=== PATIENT | female | born 1995 | race Caucasian/White ===

== ENCOUNTER 2016-08-09 21:06 | Emergency (ER) | payer MEDICAID ==
[2016-08-09 22:29] LABS: BASOPHIL % 0.3 % (0-2)
[2016-08-09 22:49] LABS: PLATELET COUNT 224 x10^3mcL (130-400)
[2016-08-09 23:09] LABS: RED CELL DISTRIBUTION WIDTH 23.5 % (11.5-14.5)
[2016-08-09 23:16] LABS: rbc morphology (normal/abnorm) ABNORMAL (NORMAL)
[2016-08-09 23:50] VITALS: BP 115/68
== END 2016-08-09 23:50 | disposition home or self-care (01) ==
LOC: ED 21:06
PROVIDERS: Emergency Medicine
DX: O20.0 Threatened abortion (principal); Z3A.01 Less than 8 weeks gestation of pregnancy

== ENCOUNTER 2017-02-12 21:59 | Emergency (ER) | payer MEDICAID ==
[2017-02-13 00:15] LABS: BASOPHIL % 0.1 % (0-2); PLATELET COUNT 246 x10^3mcL (130-400)
[2017-02-13 00:18] LABS: RED CELL DISTRIBUTION WIDTH 21.4 % (11.5-14.5)
[2017-02-13 00:37] LABS: CALCIUM 9.5 mg/dL (8.5-10.1); CARBON DIOXIDE 25.6 mmol/L (21-32); CHLORIDE SERUM 102 mmol/L (98-107); CREATININE SERUM 0.6 mg/dL (0.6-1.0); GFR1 > 60 mL/min; GLUCOSE SERUM 106 mg/dL (74-106); POTASSIUM SERUM 3.7 mmol/L (3.5-5.1); SODIUM SERUM 138 mmol/L (136-145)
[2017-02-13 00:41] LABS: ALBUMIN 4.3 g/dL (3.4-5.0); ALKALINE PHOSPHATASE 68 U/L (46-116); ALT/SGPT 24 U/L (14-59); AMYLASE 60 U/L (25-115); AST/SGOT 29 U/L (15-37); BILIRUBIN TOTAL 0.4 mg/dL (0.20-1.00); LIPASE 134 IU/L (73-393)
[2017-02-13 00:42] LABS: TOTAL PROTEIN, SERUM 8.4 g/dL (6.4-8.2)
[2017-02-13 00:56] LABS: ovalocyte/elliptocyte 1+; rbc morphology (normal/abnorm) ABNORMAL (NORMAL)
[2017-02-13 03:00] VITALS: BP 115/75
== END 2017-02-13 03:00 | disposition home or self-care (01) ==
LOC: ED 21:59
PROVIDERS: Emergency Medicine
DX: S22.080A Wedge compression fracture of T11-T12 vertebra, initial encounter for closed fracture (principal); Z86.2 Personal history of diseases of the blood and blood-forming organs and certain disorders involving the immune mechanism; V49.9XXA Car occupant (driver) (passenger) injured in unspecified traffic accident, initial encounter; Y93.19 Activity, other involving water and watercraft; Y92.488 Other paved roadways as the place of occurrence of the external cause; Y99.8 Other external cause status
CPT/HCPCS: J1170; J2405; J7030; Q0092; Q9967

== ENCOUNTER 2018-01-12 02:41 | Emergency (ER) | payer MEDICAID ==
[~2018-01-12] VITALS: Ht 157.5 cm; Wt 63.5 kg
[2018-01-12 02:46] VITALS: Ht 157.5 cm; Wt 63.5 kg
[2018-01-12 04:02] VITALS: BP 103/66
== END 2018-01-12 04:02 | disposition home or self-care (01) ==
LOC: ED 02:41
DX: F41.0 Panic disorder [episodic paroxysmal anxiety] (principal); J45.909 Unspecified asthma, uncomplicated

== ENCOUNTER 2018-10-16 11:10 | Emergency (ER) | payer SELFPAY ==
[~2018-10-16] VITALS: Ht 157.5 cm; Wt 64.0 kg
[2018-10-16 11:25] VITALS: Ht 157.5 cm; Wt 64.0 kg
[2018-10-16 12:19] VITALS: BP 110/50
== END 2018-10-16 12:19 | disposition home or self-care (01) ==
LOC: ED 11:10
DX: N39.0 Urinary tract infection, site not specified (principal); J45.909 Unspecified asthma, uncomplicated; Z86.2 Personal history of diseases of the blood and blood-forming organs and certain disorders involving the immune mechanism

== ENCOUNTER 2019-04-02 18:51 | Emergency (ER) | payer MEDICAID ==
[~2019-04-02] VITALS: Ht 162.6 cm; Wt 66.7 kg
[2019-04-02 19:26] VITALS: Ht 162.6 cm; Wt 66.7 kg
[2019-04-02 20:49] LABS: BASOPHIL % 0.4 % (0-2); PLATELET COUNT 235 x10^3mcL (130-400)
[2019-04-02 20:50] LABS: CALCIUM 8.6 mg/dL (8.5-10.1); CARBON DIOXIDE 29.7 mmol/L (21-32); CHLORIDE SERUM 103 mmol/L (98-107); CREATININE SERUM 0.6 mg/dL (0.6-1.0); GFR1 > 60 mL/min; GLUCOSE SERUM 93 mg/dL (74-106); POTASSIUM SERUM 3.6 mmol/L (3.5-5.1); SODIUM SERUM 141 mmol/L (136-145)
[2019-04-02 20:55] LABS: ALBUMIN 3.7 g/dL (3.4-5.0); ALKALINE PHOSPHATASE 61 U/L (46-116); ALT/SGPT 20 U/L (14-59); AST/SGOT 16 U/L (15-37); BILIRUBIN TOTAL 0.2 mg/dL (0.20-1.00); TOTAL PROTEIN, SERUM 7.3 g/dL (6.4-8.2)
[2019-04-02 21:05] LABS: RED CELL DISTRIBUTION WIDTH 14.8 % (11.5-14.5)
[2019-04-02 21:48] VITALS: BP 104/56
== END 2019-04-02 22:15 | disposition home or self-care (01) ==
LOC: ED 18:51
PROVIDERS: Emergency Medicine
DX: R42 Dizziness and giddiness (principal); R51 Headache; R11.2 Nausea with vomiting, unspecified; J45.909 Unspecified asthma, uncomplicated
CPT/HCPCS: 36415; J8597; Q0162

== ENCOUNTER 2019-04-21 15:35 | Emergency (ER) | payer MEDICAID ==
[~2019-04-21] VITALS: Ht 157.5 cm; Wt 65.3 kg
[2019-04-21 15:42] VITALS: BP 125/82; Ht 157.5 cm; Wt 65.3 kg
== END 2019-04-21 17:14 | disposition home or self-care (01) ==
LOC: ED 15:35
DX: L03.211 Cellulitis of face (principal); J45.909 Unspecified asthma, uncomplicated; Z98.890 Other specified postprocedural states; Z86.2 Personal history of diseases of the blood and blood-forming organs and certain disorders involving the immune mechanism
CPT/HCPCS: J2270; Q0162

== ENCOUNTER 2019-04-26 16:48 | Emergency (ER) | payer MEDICAID ==
[~2019-04-26] VITALS: Ht 157.5 cm; Wt 64.9 kg
[2019-04-26 16:54] VITALS: Ht 157.5 cm; Wt 64.9 kg
[2019-04-26 19:19] LABS: BASOPHIL % 0.5 % (0-2); PLATELET COUNT 276 x10^3mcL (130-400)
[2019-04-26 19:22] LABS: CALCIUM 9.6 mg/dL (8.5-10.1); CARBON DIOXIDE 22.3 mmol/L (21-32); CHLORIDE SERUM 103 mmol/L (98-107); CREATININE SERUM 0.5 mg/dL (0.6-1.0); GFR1 > 60 mL/min; GLUCOSE SERUM 83 mg/dL (74-106); POTASSIUM SERUM 3.6 mmol/L (3.5-5.1); SODIUM SERUM 137 mmol/L (136-145)
[2019-04-26 19:25] LABS: RED CELL DISTRIBUTION WIDTH 14.7 % (11.5-14.5)
[2019-04-26 23:10] VITALS: BP 134/97
== END 2019-04-26 23:10 | disposition home or self-care (01) ==
LOC: ED 16:48
PROVIDERS: Specialist
DX: K04.7 Periapical abscess without sinus (principal); J45.909 Unspecified asthma, uncomplicated; Z86.2 Personal history of diseases of the blood and blood-forming organs and certain disorders involving the immune mechanism
CPT/HCPCS: J1885; J2405; J2543; J3010; J3490; Q9967

== ENCOUNTER 2019-09-08 13:57 | Emergency (ER) | payer MEDICAID ==
[~2019-09-08] VITALS: Ht 157.5 cm; Wt 64.9 kg
[2019-09-08 14:02] VITALS: Ht 157.5 cm; Wt 64.9 kg
[2019-09-08 15:44] LABS: BASOPHIL % 0.2 % (0-2); PLATELET COUNT 251 x10^3mcL (130-400)
[2019-09-08 15:46] LABS: RED CELL DISTRIBUTION WIDTH 15.8 % (11.5-14.5)
[2019-09-08 15:56] LABS: CARBON DIOXIDE 25.4 mmol/L (21-32); CHLORIDE SERUM 101 mmol/L (98-107); CREATININE SERUM 0.5 mg/dL (0.6-1.0); GFR1 > 60 mL/min; GLUCOSE SERUM 89 mg/dL (74-106); POTASSIUM SERUM 3.4 mmol/L (3.5-5.1); SODIUM SERUM 138 mmol/L (136-145)
[2019-09-08 16:01] LABS: ALBUMIN 4.2 g/dL (3.4-5.0); ALKALINE PHOSPHATASE 66 U/L (46-116); ALT/SGPT 26 U/L (14-59); AST/SGOT 18 U/L (15-37); BILIRUBIN TOTAL 0.56 mg/dL (0.20-1.00); LIPASE 116 IU/L (73-393); TOTAL PROTEIN, SERUM 7.9 g/dL (6.4-8.2)
[2019-09-08 17:02] VITALS: BP 110/79
== END 2019-09-08 17:02 | disposition home or self-care (01) ==
LOC: ED 13:57
PROVIDERS: Emergency Medicine
DX: O21.9 Vomiting of pregnancy, unspecified (principal); Z3A.08 8 weeks gestation of pregnancy; Z3A.01 Less than 8 weeks gestation of pregnancy; J45.909 Unspecified asthma, uncomplicated
CPT/HCPCS: J2765; J7030

== ENCOUNTER 2020-04-13 17:23 | Emergency (ER) | payer MEDICAID ==
[~2020-04-13] VITALS: Ht 157.5 cm; Wt 82.6 kg
[2020-04-13 17:38] VITALS: Ht 157.5 cm; Wt 82.6 kg
[2020-04-13 18:22] LABS: BASOPHIL % 0.1 % (0-2); PLATELET COUNT 172 x10^3mcL (130-400); RED CELL DISTRIBUTION WIDTH 14.3 % (11.5-14.5)
[2020-04-13 18:23] LABS: microscopic required? NO
[2020-04-13 18:47] LABS: UA SPECIFIC GRAVITY >=1.030 (1.005-1.035); urine erythrocyte NEGATIVE (NEGATIVE)
[2020-04-13 19:14] LABS: CALCIUM 8.6 mg/dL (8.5-10.1); CARBON DIOXIDE 20.9 mmol/L (21-32); CHLORIDE SERUM 104 mmol/L (98-107); CREATININE SERUM 0.4 mg/dL (0.6-1.0); GFR1 > 60 mL/min; GLUCOSE SERUM 111 mg/dL (74-106); POTASSIUM SERUM 3.4 mmol/L (3.5-5.1); SODIUM SERUM 139 mmol/L (136-145)
[2020-04-13 19:20] LABS: ALBUMIN 2.6 g/dL (3.4-5.0); ALKALINE PHOSPHATASE 119 U/L (46-116); ALT/SGPT 19 U/L (14-59); AST/SGOT 14 U/L (15-37); BILIRUBIN TOTAL 0.28 mg/dL (0.20-1.00); LIPASE 129 IU/L (73-393); TOTAL PROTEIN, SERUM 6.1 g/dL (6.4-8.2)
[2020-04-13 20:00] VITALS: BP 118/78
== END 2020-04-13 20:00 | disposition home or self-care (01) ==
LOC: ED 17:23
PROVIDERS: Specialist
DX: O26.893 Other specified pregnancy related conditions, third trimester (principal); M54.5 Low back pain; J45.909 Unspecified asthma, uncomplicated; Z3A.36 36 weeks gestation of pregnancy